=== PATIENT | female | born 1990 | race Caucasian/White ===

== ENCOUNTER 2017-08-26 20:28 | Emergency (ER) | payer MEDICAID ==
[~2017-08-26] VITALS: Ht 160 cm; Wt 61.1 kg
[~2017-08-26 20:28] MED LIST: CALC400T6 PO; IBUP-1222 PO; MAKENA; OXYC-302 PO; PREN1TAB60 PO
[2017-08-26 21:08] LABS: CULTURE INDICATED? YES; MICROSCOPIC INDICATED
[2017-08-26 21:22] LABS: BASOPHILS # (AUTO) 0.01 x10^3/uL (0-0.1); BASOPHILS % (AUTO) 0 % (0-1); EOSINOPHILS # (AUTO) 0.12 x10^3/uL (0-0.4); EOSINOPHILS % (AUTO) 1 % (1-7); LYMPHOCYTES # (AUTO) 2.65 x10^3/uL (1-3.4); LYMPHOCYTES % (AUTO) 25 % (22-44); MD NO; MEAN CORPUSCULAR HEMOGLOBIN 28.7 pg (27.0-34.8); MEAN CORPUSCULAR HGB CONC 33.6 g/dL (32.4-35.8); MEAN CORPUSCULAR VOLUME 85.5 fL (80-100); MEAN PLATELET VOLUME 9.1 fL (7.4-10.4); MONOCYTES # (AUTO) 0.58 x10^3/uL (0.2-0.8); MONOCYTES % (AUTO) 6 % (2-9); NEUTROPHILS # (AUTO) 7.19 x10^3/uL (1.8-6.8); NEUTROPHILS % (AUTO) 68 % (42-75); PLATELET COUNT 328 x10^3/uL (130-400); RED BLOOD COUNT 4.84 x10^6/uL (3.82-5.3); RED CELL DISTRIBUTION WIDTH 12.6 % (9.6-15.2)
[2017-08-26 21:36] LABS: ALANINE AMINOTRANSFERASE 27 U/L (12-78); ALBUMIN 3.7 g/dL (3.4-5.0); ANION GAP 6 mmol/L (5-15); CALCIUM 8.8 mg/dL (8.5-10.1); CHLORIDE 107 mmol/L (98-107); CREATININE 0.63 mg/dL (0.55-1.02)
[2017-08-26 21:39] LABS: CLUE CELLS NONE SEEN (NONE SEEN)
[2017-08-26 21:40] LABS: WET PREP WBCS MANY (FEW)
[2017-08-26 21:52] LABS: ALKALINE PHOSPHATASE 85 U/L (45-117); BILIRUBIN,TOTAL 0.5 mg/dL (0.2-1.0); TOTAL PROTEIN 7.5 g/dL (6.4-8.2)
[2017-08-26 21:56] VITALS: BP 104/72
[2017-08-26] MEDS ORDERED: AZITHROMYCIN 250 MG TABLET ONE (22:14)
[2017-08-26] MEDS ORDERED: LIDOCAINE-MPF 1%, 2ML ONE (22:15)
[2017-08-26] MEDS ORDERED: CEFTRIAXONE 250 MG ONE (22:15)
[2017-08-26] MEDS ORDERED: CEFTRIAXONE 250 MG IM ONE (22:30)
[2017-08-26] MEDS ORDERED: AZITHROMYCIN 500 MG TABLET PO ONE (22:30)
== END 2017-08-26 22:47 | disposition home or self-care (01) ==
LOC: ED 20:47
DX: O20.0 Threatened abortion (principal); O23.11 Infections of bladder in pregnancy, first trimester; Z3A.08 8 weeks gestation of pregnancy
CPT/HCPCS: 36415; 76801; 80053; 81001; 84702; 85025; 86901; 87086; 87210; 87491; 87591; 87808; 96372; 99285; J0696

== ENCOUNTER 2017-11-28 00:13 | Outpatient (CLI) | payer MEDICAID ==
[~2017-11-28] VITALS: Ht 157.5 cm; Wt 61.0 kg
[2017-11-28 01:18] LABS: MICROSCOPIC AUTO
== END 2017-11-28 01:30 | disposition home or self-care (01) ==
LOC: LDOP 00:13
PROVIDERS: ATTEND Obstetrics & Gynecology Gynecology
DX: O26.892 Other specified pregnancy related conditions, second trimester (principal); R10.9 Unspecified abdominal pain; Z3A.22 22 weeks gestation of pregnancy
CPT/HCPCS: 59025; 76815; 81001; 87086; 99211; G0463

== ENCOUNTER 2017-12-01 07:42 | Outpatient (CLI) | payer MEDICAID ==
[~2017-12-01] VITALS: Ht 160 cm; Wt 59.1 kg
[2017-12-01 09:23] LABS: MICROSCOPIC INDICATED
== END 2017-12-01 10:05 | disposition home or self-care (01) ==
LOC: LDOP 07:42
PROVIDERS: ATTEND Obstetrics & Gynecology Gynecology
DX: O26.892 Other specified pregnancy related conditions, second trimester (principal); M54.5 Low back pain; R31.9 Hematuria, unspecified; N13.30 Unspecified hydronephrosis; Z3A.22 22 weeks gestation of pregnancy
CPT/HCPCS: 59025; 76775; 81001; 99211; G0463

== ENCOUNTER 2017-12-20 20:10 | Inpatient (IN) | payer MEDICAID ==
[~2017-12-20] VITALS: Ht 162.6 cm; Wt 62.0 kg
[2017-12-20 20:46] LABS: MICROSCOPIC INDICATED
[2017-12-20] MEDS ORDERED: PLEASE ENTER HEIGHT AND WEIGHT MC SCH (21:00)
[2017-12-20] MEDS ORDERED: CYCLOBENZAPRINE 10 MG TABLET PO ONE (21:00)
[2017-12-20] MEDS ORDERED: HYDROcodone/APAP 5/325 TABLET ONE (21:40)
[2017-12-20] MEDS ORDERED: HYDROcodone/APAP 5/325 TABLET PO ONE (22:00)
[2017-12-20 22:09] LABS: BASOPHILS # (AUTO) 0.03 x10^3/uL (0-0.1); BASOPHILS % (AUTO) 0 % (0-1); EOSINOPHILS # (AUTO) 0.06 x10^3/uL (0-0.4); EOSINOPHILS % (AUTO) 1 % (1-7); LYMPHOCYTES # (AUTO) 1.95 x10^3/uL (1-3.4); LYMPHOCYTES % (AUTO) 15 % (22-44); MD NO; MEAN CORPUSCULAR HEMOGLOBIN 30.3 pg (27.0-34.8); MEAN CORPUSCULAR HGB CONC 34.3 g/dL (32.4-35.8); MEAN CORPUSCULAR VOLUME 88.5 fL (80-100); MEAN PLATELET VOLUME 8.5 fL (7.4-10.4); MONOCYTES # (AUTO) 0.64 x10^3/uL (0.2-0.8); MONOCYTES % (AUTO) 5 % (2-9); NEUTROPHILS # (AUTO) 10.74 x10^3/uL (1.8-6.8); NEUTROPHILS % (AUTO) 80 % (42-75); PLATELET COUNT 314 x10^3/uL (130-400); RED BLOOD COUNT 3.78 x10^6/uL (3.82-5.3)
[2017-12-20 22:33] LABS: ALANINE AMINOTRANSFERASE 17 U/L (12-78); ALBUMIN 2.9 g/dL (3.4-5.0); ANION GAP 5 mmol/L (5-15); CALCIUM 8.7 mg/dL (8.5-10.1); CHLORIDE 107 mmol/L (98-107)
[2017-12-20 22:36] LABS: ALKALINE PHOSPHATASE 111 U/L (45-117); BILIRUBIN,TOTAL 0.5 mg/dL (0.2-1.0); CREATININE 0.58 mg/dL (0.55-1.02); TOTAL PROTEIN 6.8 g/dL (6.4-8.2)
[2017-12-20] MEDS ORDERED: ONDANSETRON 4 MG TABLET ONE (23:54)
[2017-12-21] MEDS ORDERED: ONDANSETRON ODT 4 MG PO ONE
[2017-12-21] MEDS ORDERED: ONDANSETRON 4 MG TABLET PO ONE
[2017-12-21] MEDS ORDERED: MORPHINE SULFATE 4 MG/ML, 1ML IVPush ONE ×2 (01:00→03:00)
[2017-12-21] MEDS ORDERED: MORPHINE SULFATE 4 MG/ML, 1ML ONE ×6 (01:00→11:13)
[2017-12-21] MEDS ORDERED: ONDANSETRON 2MG/ML, 2ML ONE ×3 (01:02→20:11)
[2017-12-21] MEDS: ONDANSETRON 2MG/ML, 2ML IVPush PRN ×3 (01:03→20:13)
[2017-12-21] MEDS ORDERED: D5%-LACTATED RINGERS 1,000 ML IV SCH (04:00)
[2017-12-21] MEDS ORDERED: DIPHENHYDRAMINE 50 MG/ML, 1ML ONE (04:04)
[2017-12-21] MEDS ORDERED: DIPHENHYDRAMINE 50 MG/ML, 1ML IVPush PRN ×2 (04:30)
[2017-12-21] MEDS ORDERED: PROMETHAZINE 25 MG/ML, 1ML ONE (05:22)
[2017-12-21] MEDS ORDERED: morphine SULFATE 10 MG/ML, 1ML IVPush PRN ×2 (05:30)
[2017-12-21] MEDS ORDERED: PROMETHAZINE 25 MG/ML, 1ML IM PRN (05:30)
[2017-12-21] MEDS: MORPHINE SULFATE 4 MG/ML, 1ML IVPush PRN ×3 (06:34→11:15)
[2017-12-21 08:31] VITALS: BP 104/66
[2017-12-21] MEDS: LACTATED RINGERS 1,000 ML IV SCH (08:37)
[2017-12-21] MEDS ORDERED: OXYcodone/APAP 10/325MG TABLET PO PRN (11:30)
[2017-12-21 11:33] LABS: MICROSCOPIC NOT IND
[2017-12-21 11:39] LABS: CULTURE INDICATED? NO
[2017-12-21 11:56] LABS: BASOPHILS # (AUTO) 0.09 x10^3/uL (0-0.1); BASOPHILS % (AUTO) 1 % (0-1); EOSINOPHILS # (AUTO) 0.01 x10^3/uL (0-0.4); EOSINOPHILS % (AUTO) 0 % (1-7); LYMPHOCYTES # (AUTO) 1.71 x10^3/uL (1-3.4); LYMPHOCYTES % (AUTO) 11 % (22-44); MD NO; MEAN CORPUSCULAR HEMOGLOBIN 30.3 pg (27.0-34.8); MEAN CORPUSCULAR HGB CONC 34.4 g/dL (32.4-35.8); MEAN PLATELET VOLUME 8.8 fL (7.4-10.4); MONOCYTES # (AUTO) 0.74 x10^3/uL (0.2-0.8); MONOCYTES % (AUTO) 5 % (2-9); NEUTROPHILS # (AUTO) 13.61 x10^3/uL (1.8-6.8); NEUTROPHILS % (AUTO) 84 % (42-75); PLATELET COUNT 315 x10^3/uL (130-400); RED BLOOD COUNT 3.84 x10^6/uL (3.82-5.3)
[2017-12-21] MEDS ORDERED: HYDROmorphone 2 MG/ML, 1ML ONE ×2 (12:06→14:47)
[2017-12-21] MEDS: HYDROmorphone 2 MG/ML, 1ML IVPush PRN ×3 (12:10→14:49)
[2017-12-21] MEDS ORDERED: HYDROmorphone 2 MG/ML, 1ML IVPush PRN (12:30)
[2017-12-21 15:11] LABS: AMPHETAMINE SCREEN, URINE Negative (Negative); BARBITURATE SCREEN, URINE Negative (Negative); BENZODIAZEPINE SCREEN, URINE Negative (Negative); CANNABINOID SCREEN, URINE Negative (Negative); COCAINE SCREEN, URINE Negative (Negative); METHADONE SCREEN, URINE Negative (Negative); OPIATE SCREEN, URINE Positive (Negative)
[2017-12-21 19:06] LABS: MEAN CORPUSCULAR HGB CONC 34.1 g/dL (32.4-35.8); MEAN CORPUSCULAR VOLUME 87.9 fL (80-100); MEAN PLATELET VOLUME 8.4 fL (7.4-10.4); PLATELET COUNT 315 x10^3/uL (130-400); RED BLOOD COUNT 3.92 x10^6/uL (3.82-5.3)
[2017-12-22] MEDS: LACTATED RINGERS 1,000 ML IV SCH (02:40)
== END 2017-12-22 08:30 | disposition home or self-care (01) | DRG 781 ==
LOC: LDOP 20:10 → UNDOADMIN 12-21 00:59 → LDIP 12-21 00:59
PROVIDERS: ADMIT Obstetrics & Gynecology Gynecology; ATTEND Obstetrics & Gynecology Gynecology
DX: O99.612 Diseases of the digestive system complicating pregnancy, second trimester (principal); N13.30 Unspecified hydronephrosis; O99.89 Other specified diseases and conditions complicating pregnancy, childbirth and the puerperium; Z3A.26 26 weeks gestation of pregnancy; K52.9 Noninfective gastroenteritis and colitis, unspecified; K59.00 Constipation, unspecified; Z80.3 Family history of malignant neoplasm of breast; Z80.41 Family history of malignant neoplasm of ovary; Z80.49 Family history of malignant neoplasm of other genital organs; Z81.8 Family history of other mental and behavioral disorders; Z82.49 Family history of ischemic heart disease and other diseases of the circulatory system; Z81.1 Family history of alcohol abuse and dependence; Z88.2 Allergy status to sulfonamides
CPT/HCPCS: 36415; 87806; J7121; 74181; 76700; 76857; 80053; 80307; 81001; 81003; 85025; 85027; 86592; 86762; 86850; 86900; 87086; 87340; J1170; J2405; Q0162; G0475; J1200; J2270; J7120

== ENCOUNTER 2018-03-14 08:27 | Inpatient (IN) | payer MEDICAID ==
[~2018-03-14] VITALS: Ht 162.6 cm; Wt 65.9 kg
[2018-03-14] MEDS ORDERED: LACTATED RINGERS 1,000 ML IV SCH ×2 (12:14→12:15)
[2018-03-14] MEDS ORDERED: OXYTOCIN 30U/ 0.9% NaCL 500ML 500 ML IV SCH (12:14)
[2018-03-14] MEDS ORDERED: NEWBORN KIT ONE (12:19)
[2018-03-14] MEDS ORDERED: METOCLOPRAMIDE 5 MG/ML, 2ML ONE (12:19)
[2018-03-14] MEDS ORDERED: OXYTOCIN 30U/ 0.9% NaCL 500ML 500 ML ONE (12:19)
[2018-03-14] MEDS ORDERED: SODIUM CITRATE/CITRIC ACID 30 ML UDC ONE (12:20)
[2018-03-14] MEDS ORDERED: METOCLOPRAMIDE 5 MG/ML, 2ML IV ONE (12:30)
[2018-03-14] MEDS ORDERED: LACTATED RINGERS 1,000 ML IVBOLUS ONE (12:30)
[2018-03-14] MEDS ORDERED: SODIUM CITRATE/CITRIC ACID 30 ML UDC PO ONE (12:30)
[2018-03-14 12:44] VITALS: BP 101/58
[2018-03-14 12:54] LABS: BASOPHILS # (AUTO) 0.03 x10^3/uL (0-0.1); BASOPHILS % (AUTO) 0 % (0-1); EOSINOPHILS # (AUTO) 0.13 x10^3/uL (0-0.4); EOSINOPHILS % (AUTO) 1 % (1-7); LYMPHOCYTES # (AUTO) 2.21 x10^3/uL (1-3.4); LYMPHOCYTES % (AUTO) 21 % (22-44); MD NO; MEAN CORPUSCULAR HEMOGLOBIN 28.1 pg (27.0-34.8); MEAN CORPUSCULAR HGB CONC 33.6 g/dL (32.4-35.8); MEAN CORPUSCULAR VOLUME 83.6 fL (80-100); MEAN PLATELET VOLUME 8.6 fL (7.4-10.4); MONOCYTES # (AUTO) 0.63 x10^3/uL (0.2-0.8); MONOCYTES % (AUTO) 6 % (2-9); NEUTROPHILS # (AUTO) 7.63 x10^3/uL (1.8-6.8); NEUTROPHILS % (AUTO) 72 % (42-75); PLATELET COUNT 263 x10^3/uL (130-400); RED CELL DISTRIBUTION WIDTH 12.8 % (9.6-15.2)
[2018-03-14] MEDS ORDERED: ONDANSETRON 2MG/ML, 2ML ONE (14:09)
[2018-03-14] MEDS ORDERED: CEFAZOLIN 1,000 MG ONE (14:09)
[2018-03-14] MEDS ORDERED: EPHEDRINE 50 MG/ML, 1ML ONE (14:09)
[2018-03-14] MEDS ORDERED: OXYTOCIN 10 UNITS/ML, 1ML ONE (14:09)
[2018-03-14] MEDS ORDERED: PHENYLEPHRINE 10 MG/ML ONE (14:09)
[2018-03-14] MEDS ORDERED: DEXAMETHASONE 4 MG/ML, 1ML ONE (14:09)
[2018-03-14] MEDS ORDERED: FENTANYL PF 100 MCG/2ML ONE (14:09)
[2018-03-14] MEDS ORDERED: KETOROLAC 30 MG/1 ML ONE (14:09)
[2018-03-14] MEDS ORDERED: FENTANYL PF 100 MCG/2ML IV PRN (14:30)
[2018-03-14] MEDS ORDERED: PROMETHAZINE 25 MG/ML, 1ML IV PRN (14:30)
[2018-03-14] MEDS ORDERED: MIDAZOLAM 1 MG/ML, 2ML IV PRN (14:30)
[2018-03-14] MEDS ORDERED: LABETALOL 5MG/ML, 20ML IV PRN (14:30)
[2018-03-14] MEDS ORDERED: HYDROcodone/APAP 7.5-325MG/15ML UDC PO PRN (14:30)
[2018-03-14] MEDS ORDERED: ALBUTEROL SULFATE 2.5 MG/3 ML NPPB PRN (14:30)
[2018-03-14] MEDS ORDERED: hydrALAzine 20 MG/ML, 1ML IV PRN (14:30)
[2018-03-14] MEDS ORDERED: HYDROmorphone 1 MG/ML, 1ML IV PRN (14:30)
[2018-03-14] MEDS ORDERED: MEPERIDINE/PF 25MG/0.5ML IVPush PRN (14:30)
[2018-03-14] MEDS ORDERED: ONDANSETRON 2MG/ML, 2ML IVPush PRN (14:30)
[2018-03-14] MEDS ORDERED: OXYcodone 5 MG/5 ML ORAL.SOL UDC PO PRN (14:30)
[2018-03-14] MEDS ORDERED: EPHEDRINE 50 MG/ML, 1ML IVPush PRN (14:30)
[2018-03-14] MEDS: LACTATED RINGERS 1,000 ML IV SCH ×3 (14:40→22:40)
[2018-03-14] MEDS: OXYTOCIN 30U/ 0.9% NaCL 500ML 500 ML IV SCH (14:40)
[2018-03-14] MEDS ORDERED: morphine SULFATE 10 MG/ML, 1ML IVPush PRN (15:00)
[2018-03-14] MEDS ORDERED: OXYcodone IR 5MG TABLET PO PRN (15:00)
[2018-03-14] MEDS ORDERED: SIMETHICONE 80 MG CHEW TAB PO PRN (15:00)
[2018-03-14] MEDS ORDERED: ONDANSETRON 2MG/ML, 2ML IV PRN (15:00)
[2018-03-14] MEDS ORDERED: MISOPROSTOL 200 MCG TABLET PR PRN (15:00)
[2018-03-14] MEDS ORDERED: MEASLES,MUMPS&RUBELLA VACC/PF 0.5 ML SQ-VACC PRN (15:00)
[2018-03-14] MEDS ORDERED: CALCIUM CARBONATE 500 MG TAB.CHEW PO PRN (15:00)
[2018-03-14] MEDS ORDERED: DIPH,PERTUSS(ACELL),TET VAC/PF NC IM-VACC PRN (15:00)
[2018-03-14] MEDS ORDERED: RHOGAM FROM BLOOD BANK 1 NOTE EA IM/IV ONE (15:00)
[2018-03-14] MEDS ORDERED: OXYcodone 5 MG/5 ML ORAL.SOL UDC ONE (16:18)
[2018-03-14 18:20] VITALS: BP 102/63
[2018-03-14 20:00] VITALS: BP 107/66
[2018-03-14] MEDS: DOCUSATE 100 MG CAPSULE PO PRN (20:32)
[2018-03-14] MEDS: KETOROLAC 30 MG/1 ML IV SCH ×2 (20:32→21:00)
[2018-03-15 00:15] VITALS: BP 95/60
[2018-03-15] MEDS: LACTATED RINGERS 1,000 ML IV SCH ×2 (00:40→06:40)
[2018-03-15] MEDS: OXYTOCIN 30U/ 0.9% NaCL 500ML 500 ML IV SCH (00:40)
[2018-03-15] MEDS: OXYcodone/APAP 5/325MG TABLET PO PRN ×3 (01:10→15:09)
[2018-03-15] MEDS: KETOROLAC 30 MG/1 ML IV SCH ×4 (03:07→20:47)
[2018-03-15 04:00] VITALS: BP 100/65
[2018-03-15 04:47] LABS: BASOPHILS # (AUTO) 0.05 x10^3/uL (0-0.1); BASOPHILS % (AUTO) 0 % (0-1); EOSINOPHILS # (AUTO) 0.05 x10^3/uL (0-0.4); EOSINOPHILS % (AUTO) 0 % (1-7); LYMPHOCYTES # (AUTO) 3.06 x10^3/uL (1-3.4); LYMPHOCYTES % (AUTO) 22 % (22-44); MD NO; MEAN CORPUSCULAR HEMOGLOBIN 28.7 pg (27.0-34.8); MEAN CORPUSCULAR HGB CONC 33.7 g/dL (32.4-35.8); MEAN PLATELET VOLUME 8.8 fL (7.4-10.4); MONOCYTES # (AUTO) 1.14 x10^3/uL (0.2-0.8); MONOCYTES % (AUTO) 8 % (2-9); NEUTROPHILS # (AUTO) 9.35 x10^3/uL (1.8-6.8); NEUTROPHILS % (AUTO) 69 % (42-75); PLATELET COUNT 308 x10^3/uL (130-400); RED BLOOD COUNT 3.62 x10^6/uL (3.82-5.3); RED CELL DISTRIBUTION WIDTH 12.8 % (9.6-15.2)
[2018-03-15 07:30] VITALS: BP 101/61
[2018-03-15] MEDS: PRENATAL VIT/IRON/FA 1 EACH TABLET PO SCH (07:48)
[2018-03-15] MEDS: DOCUSATE 100 MG CAPSULE PO PRN ×2 (07:51→20:47)
[2018-03-15 11:59] VITALS: BP 108/67
[2018-03-15 19:58] VITALS: BP 102/68
[2018-03-16] MEDS: OXYcodone/APAP 5/325MG TABLET PO PRN ×2 (00:43→15:09)
[2018-03-16] MEDS: KETOROLAC 30 MG/1 ML IV SCH ×2 (03:07→09:25)
[2018-03-16] MEDS: PRENATAL VIT/IRON/FA 1 EACH TABLET PO SCH (09:00)
[2018-03-16] MEDS: DOCUSATE 100 MG CAPSULE PO PRN (09:25)
[2018-03-16 09:30] VITALS: BP 106/73
[2018-03-16] MEDS: IBUPROFEN 600 MG TABLET PO PRN (15:09)
[2018-03-16 20:15] VITALS: BP 123/79
[2018-03-17] MEDS: IBUPROFEN 600 MG TABLET PO PRN ×3 (00:38→13:49)
[2018-03-17] MEDS: OXYcodone/APAP 5/325MG TABLET PO PRN ×3 (00:38→13:48)
[2018-03-17 07:37] VITALS: BP 111/74
[2018-03-17] MEDS: DOCUSATE 100 MG CAPSULE PO PRN (07:38)
[2018-03-17] MEDS: PRENATAL VIT/IRON/FA 1 EACH TABLET PO SCH (07:38)
[2018-03-17] MEDS ORDERED: OXYC-302 PO (13:56)
[2018-03-17] MEDS ORDERED: IBUP-1222 PO (13:56)
== END 2018-03-17 15:18 | disposition home or self-care (01) | DRG 788 ==
LOC: LDIP 12:04 → 2NW 17:53
PROVIDERS: ADMIT Obstetrics & Gynecology Gynecology; ATTEND Obstetrics & Gynecology Gynecology
PROC: 10D00Z1 Extraction of Products of Conception, Low, Open Approach (ICD-10-PCS; principal; 2018-03-14)
DX: O34.211 Maternal care for low transverse scar from previous cesarean delivery (principal); O99.824 Streptococcus B carrier state complicating childbirth; Z37.0 Single live birth; Z3A.37 37 weeks gestation of pregnancy; Z80.3 Family history of malignant neoplasm of breast; Z80.41 Family history of malignant neoplasm of ovary; Z80.49 Family history of malignant neoplasm of other genital organs; Z81.8 Family history of other mental and behavioral disorders; Z82.49 Family history of ischemic heart disease and other diseases of the circulatory system; Z88.2 Allergy status to sulfonamides
CPT/HCPCS: 36415; 82803; 85025; 86850; 86900; G0378; J0690; J1100; J1885; J2405; J3010; J2370; J2590; J2765; J7120

== ENCOUNTER 2018-10-15 03:15 | Emergency (ER) | payer MEDICAID, OTHER ==
[~2018-10-15] VITALS: Ht 160 cm; Wt 52.5 kg
[2018-10-15 03:19] VITALS: BP 112/74
--- NOTE | 2018-10-15 03:50 | NUR ---
PT PRESENTED WITH C/O LEFT LOWER DENTAL PAIN, MONITORS IN PLACE, CALL LIGHT WITHIN REACH
[2018-10-15] MEDS ORDERED: LIDOCAINE-MPF 1%, 2ML ONE (03:52)
[2018-10-15] MEDS ORDERED: BUPIVACAINE 0.25% ONE (03:53)
[2018-10-15] MEDS ORDERED: CLINDAMYCIN 300 MG CAPSULE ONE (03:53)
--- NOTE | 2018-10-15 03:55 | NUR ---
PT MEDICATED PER MAR
[2018-10-15] MEDS ORDERED: LIDOCAINE 1%, 2ML INFIL ONE (04:00)
[2018-10-15] MEDS ORDERED: BUPIVACAINE/PF 0.5% INFIL ONE (04:00)
[2018-10-15] MEDS ORDERED: CLINDAMYCIN 300 MG CAPSULE PO ONE (04:00)
== END 2018-10-15 04:50 | disposition home or self-care (01) ==
LOC: ED 03:38
DX: K04.7 Periapical abscess without sinus (principal); F17.200 Nicotine dependence, unspecified, uncomplicated
CPT/HCPCS: 41800; 99283

== ENCOUNTER 2019-06-12 13:25 | Emergency (ER) | payer SELFPAY ==
[~2019-06-12] VITALS: Ht 160 cm; Wt 57.3 kg
[2019-06-12 14:04] LABS: BASOPHILS # (AUTO) 0.04 x10^3/uL (0-0.1); BASOPHILS % (AUTO) 1 % (0-1); EOSINOPHILS % (AUTO) 1 % (1-7); LYMPHOCYTES # (AUTO) 2.15 x10^3/uL (1-3.4); LYMPHOCYTES % (AUTO) 25 % (22-44); MD NO; MEAN CORPUSCULAR HEMOGLOBIN 29.4 pg (27.0-34.8); MEAN CORPUSCULAR HGB CONC 33.3 g/dL (32.4-35.8); MEAN CORPUSCULAR VOLUME 88.3 fL (80-100); MEAN PLATELET VOLUME 8.9 fL (7.4-10.4); MONOCYTES # (AUTO) 0.48 x10^3/uL (0.2-0.8); MONOCYTES % (AUTO) 6 % (2-9); NEUTROPHILS % (AUTO) 68 % (42-75); PLATELET COUNT 300 x10^3/uL (130-400); RED BLOOD COUNT 4.44 x10^6/uL (3.82-5.3); RED CELL DISTRIBUTION WIDTH 13.2 % (9.6-15.2)
[2019-06-12 14:11] LABS: MICROSCOPIC AUTO
[2019-06-12 14:12] LABS: CULTURE INDICATED? YES
[2019-06-12 14:13] VITALS: BP 113/63
[2019-06-12 14:15] LABS: ALBUMIN 3.5 g/dL (3.4-5.0); ANION GAP 7 mmol/L (5-15); CALCIUM 8.6 mg/dL (8.5-10.1); CHLORIDE 107 mmol/L (98-107); CREATININE 0.56 mg/dL (0.55-1.02)
--- NOTE | 2019-06-12 14:33 | NUR ---
REPORT TO MICHI. PT RESTING IN BED
--- NOTE | 2019-06-12 15:28 | NUR ---
back from ultrasound
--- NOTE | 2019-06-12 16:37 | NUR ---
Patient given discharge instructions and they have confirmed that they understand the instructions. Patient ambulatory with steady gait.
== END 2019-06-12 16:38 | disposition home or self-care (01) ==
LOC: ED 14:12
DX: R10.31 Right lower quadrant pain (principal); R10.32 Left lower quadrant pain
CPT/HCPCS: 36415; 76801; 80048; 81001; 82040; 84703; 85025; 87086; 99284

== ENCOUNTER 2020-06-29 10:50 | Emergency (ER) | payer SELFPAY ==
[~2020-06-29] VITALS: Ht 162.6 cm; Wt 59.9 kg
[~2020-06-29 10:50] MED LIST changes: -OXYC-302 PO; +OXYC1TAB14 PO
--- NOTE | 2020-06-29 11:38 | NUR ---
SENIOR ENVIRONMENTAL CONSULTANT: PT AMBULATORY TO ROOM FROM LOBBY
--- NOTE | 2020-06-29 11:46 | NUR ---
PT REPORTS THAT SHE IS 14 WEEKS . PT STATES THAT SHE HAS BEEN EXPERIENCING CRAMPING AND PAINFUL URINATION X4 DAYS. PT DENIES ANY VAGINAL BLEEDING Addendum: 06/29/20 at 1148 by NRAPONI PT STATES THAT SHE IS 14 WEEKS . PT C/O CRAMPING X4 HOURS AND PAINFUL URINATION. PT DENIES ANY VAGINAL BLEEDING OR DISCHARGE.
--- NOTE | 2020-06-29 11:50 | NUR ---
PT TO US
[2020-06-29 12:00] LABS: BASOPHILS % (AUTO) 0 % (0-1); EOSINOPHILS % (AUTO) 1 % (1-7); LYMPHOCYTES % (AUTO) 19 % (22-44); MEAN CORPUSCULAR HEMOGLOBIN 29.7 pg (27.0-34.8); MEAN CORPUSCULAR HGB CONC 34.8 g/dL (32.4-35.8); MEAN PLATELET VOLUME 8.7 fL (7.4-10.4); MONOCYTES % (AUTO) 5 % (2-9); NEUTROPHILS % (AUTO) 75 % (42-75); PLATELET COUNT 305 x10^3/uL (130-400); RED BLOOD COUNT 4.55 x10^6/uL (3.82-5.3); RED CELL DISTRIBUTION WIDTH 12.3 % (9.6-15.2)
[2020-06-29 12:02] LABS: MICROSCOPIC INDICATED
[2020-06-29 12:04] LABS: MD NO
[2020-06-29 12:11] LABS: ALBUMIN 3.4 g/dL (3.4-5.0); ANION GAP 6 mmol/L (5-15); CHLORIDE 109 mmol/L (98-107)
[2020-06-29 12:30] LABS: ALANINE AMINOTRANSFERASE 23 U/L (12-78); ALKALINE PHOSPHATASE 86 U/L (45-117); BILIRUBIN,TOTAL 0.4 mg/dL (0.2-1.0); CREATININE 0.57 mg/dL (0.55-1.02)
[2020-06-29 12:53] VITALS: BP 98/62
--- NOTE | 2020-06-29 12:53 | NUR ---
PT RESTING COMFORTABLY IN BED.
--- NOTE | 2020-06-29 13:34 | NUR ---
DISCHARGE INSTRUCTIONS REVIEWED WITH PT. ALL QUESTIONS ANSWERED AT THIS TIME
== END 2020-06-29 13:36 | disposition home or self-care (01) ==
LOC: ED 13:00
DX: O23.12 Infections of bladder in pregnancy, second trimester (principal); R10.2 Pelvic and perineal pain; Z3A.14 14 weeks gestation of pregnancy
CPT/HCPCS: 36415; 76815; 80053; 81001; 84702; 85025; 87086; 99284

== ENCOUNTER 2020-07-16 00:12 | Emergency (ER) | payer SELFPAY ==
[~2020-07-16] VITALS: Ht 157.5 cm; Wt 60.1 kg
--- NOTE | 2020-07-16 00:25 | NUR ---
pt came into ed tonight due to bleeding, pt is 4 months . reports small amounts of blood. denies cramping, nad, appears comfortable, pt placed on spo2/bp monitoring at this time. provided warm blankets for comfort, call light on lap, bed in lowest, rails engaged, SO at bs, [facility] at bs for eval and poc. wctm.
[2020-07-16 00:58] LABS: ANION GAP 7 mmol/L (5-15); BASOPHILS % (AUTO) 0 % (0-1); CALCIUM 8.4 mg/dL (8.5-10.1); CHLORIDE 108 mmol/L (98-107); CREATININE 0.46 mg/dL (0.55-1.02); EOSINOPHILS % (AUTO) 1 % (1-7); LYMPHOCYTES % (AUTO) 27 % (22-44); MEAN CORPUSCULAR HEMOGLOBIN 29.6 pg (27.0-34.8); MEAN CORPUSCULAR HGB CONC 34.8 g/dL (32.4-35.8); MEAN PLATELET VOLUME 9.1 fL (7.4-10.4); MONOCYTES % (AUTO) 6 % (2-9); NEUTROPHILS % (AUTO) 65 % (42-75); PLATELET COUNT 287 x10^3/uL (130-400); RED BLOOD COUNT 4.26 x10^6/uL (3.82-5.3); RED CELL DISTRIBUTION WIDTH 12.2 % (9.6-15.2)
[2020-07-16 01:02] LABS: MD NO
[2020-07-16 01:06] LABS: MICROSCOPIC AUTO
--- NOTE | 2020-07-16 01:06 | NUR ---
Report received from VELIA Martinez. This RN to assume care.
[2020-07-16 02:09] VITALS: BP 95/63
--- NOTE | 2020-07-16 02:46 | NUR ---
Discharge instructions given. All questions and concerns addressed. Patient ambulatory with a steady gait. Belongings with patient.
== END 2020-07-16 02:47 | disposition home or self-care (01) ==
LOC: ED 00:45
DX: O20.0 Threatened abortion (principal); R10.30 Lower abdominal pain, unspecified; Z3A.16 16 weeks gestation of pregnancy; Z87.891 Personal history of nicotine dependence
CPT/HCPCS: 36415; 76815; 80048; 81001; 82040; 84702; 85025; 86901; 99284

== ENCOUNTER 2020-11-29 15:22 | Outpatient (CLI) | payer SELFPAY ==
[~2020-11-29] VITALS: Ht 157.5 cm; Wt 65.9 kg
[2020-11-29 15:30] VITALS: BP 109/63
[2020-11-29 16:23] LABS: MICROSCOPIC INDICATED
[2020-11-29 16:31] LABS: AMPHETAMINE SCREEN, URINE Negative (Negative); BARBITURATE SCREEN, URINE Negative (Negative); BENZODIAZEPINE SCREEN, URINE Negative (Negative); CANNABINOID SCREEN, URINE Negative (Negative); COCAINE SCREEN, URINE Negative (Negative); METHADONE SCREEN, URINE Negative (Negative); OPIATE SCREEN, URINE Negative (Negative)
[2020-11-29] MEDS ORDERED: NITR100C56 PO (17:10)
== END 2020-11-29 17:17 | disposition home or self-care (01) ==
LOC: LDOP 15:22
PROVIDERS: ATTEND Obstetrics & Gynecology
DX: O26.893 Other specified pregnancy related conditions, third trimester (principal); R10.9 Unspecified abdominal pain; Z3A.35 35 weeks gestation of pregnancy
CPT/HCPCS: 59025; 80307; 81001; 87086

== ENCOUNTER 2020-12-07 17:45 | Outpatient (CLI) | payer SELFPAY ==
[~2020-12-07] VITALS: Ht 160 cm; Wt 68.2 kg
[~2020-12-07 17:45] MED LIST changes: +NITR100C56 PO; +OXYC1TAB12 PO; -OXYC1TAB14 PO
[2020-12-07] MEDS ORDERED: PREN-59 PO (17:56)
[2020-12-07 18:37] LABS: MICROSCOPIC INDICATED
[2020-12-07 19:12] LABS: RAPID INFLUENZA A Negative (Negative); RAPID INFLUENZA B Negative (Negative)
== END 2020-12-07 20:15 | disposition home or self-care (01) ==
LOC: LDOP 17:45
PROVIDERS: ATTEND Obstetrics & Gynecology
DX: O98.513 Other viral diseases complicating pregnancy, third trimester (principal); O36.8130 Decreased fetal movements, third trimester, not applicable or unspecified; U07.1 COVID-19; Z3A.36 36 weeks gestation of pregnancy
CPT/HCPCS: 59025; 76819; 81001; 87086; 87400; 87635

== ENCOUNTER 2020-12-12 07:12 | Inpatient (IN) | payer OTHER ==
[~2020-12-12] VITALS: Ht 160 cm; Wt 67.2 kg
[~2020-12-12 07:12] MED LIST changes: -OXYC1TAB12 PO; +OXYC1TAB14 PO; +PREN-59 PO
[2020-12-12] MEDS ORDERED: LACTATED RINGERS 1,000 ML IVBOLUS ONE (10:30)
[2020-12-12] MEDS ORDERED: METOCLOPRAMIDE 5 MG/ML, 2ML IV ONE (10:30)
[2020-12-12] MEDS ORDERED: SODIUM CITRATE/CITRIC ACID 30 ML UDC PO ONE (10:30)
[2020-12-12] MEDS ORDERED: PLEASE ENTER HEIGHT AND WEIGHT MC SCH (10:30)
[2020-12-12 10:32] LABS: BASOPHILS % (AUTO) 1 % (0-1); EOSINOPHILS % (AUTO) 1 % (1-7); LYMPHOCYTES % (AUTO) 36 % (22-44); MEAN CORPUSCULAR HEMOGLOBIN 28.8 pg (27.0-34.8); MEAN CORPUSCULAR HGB CONC 34.9 g/dL (32.4-35.8); MONOCYTES % (AUTO) 6 % (2-9); NEUTROPHILS % (AUTO) 56 % (42-75); PLATELET COUNT 202 x10^3/uL (130-400); RED BLOOD COUNT 4.35 x10^6/uL (3.82-5.3)
[2020-12-12] MEDS ORDERED: NEWBORN KIT ONE (10:52)
[2020-12-12] MEDS ORDERED: OXYTOCIN 30U/ 0.9% NaCL 500ML 500 ML ONE (10:53)
[2020-12-12] MEDS ORDERED: METOCLOPRAMIDE 5 MG/ML, 2ML ONE (10:53)
[2020-12-12] MEDS ORDERED: SODIUM CITRATE/CITRIC ACID 15 ML UDC ONE (10:53)
[2020-12-12 10:54] VITALS: BP 117/72
[2020-12-12] MEDS ORDERED: LACTATED RINGERS 1,000 ML IV SCH (11:30)
[2020-12-12] MEDS ORDERED: morphine SULFATE/PF 0.5 MG/ML, 10ML ONE (12:01)
[2020-12-12] MEDS ORDERED: OXYTOCIN 10 UNITS/ML, 1ML ONE (12:07)
[2020-12-12] MEDS ORDERED: DEXAMETHASONE 4 MG/ML, 1ML ONE (12:07)
[2020-12-12] MEDS ORDERED: ONDANSETRON 2MG/ML, 2ML ONE (12:07)
[2020-12-12] MEDS ORDERED: PHENYLEPHRINE 10 MG/ML ONE (12:07)
[2020-12-12] MEDS ORDERED: SODIUM CHLORIDE FLUSH 0.9%, 20 ML ONE (12:07)
[2020-12-12] MEDS ORDERED: KETOROLAC 30 MG/1 ML ONE ×2 (12:07→21:50)
[2020-12-12] MEDS ORDERED: MIDAZOLAM 1 MG/ML, 2ML ONE (12:36)
[2020-12-12] MEDS ORDERED: FENTANYL PF 100 MCG/2ML ONE (12:44)
[2020-12-12] MEDS: LACTATED RINGERS 1,000 ML IV SCH ×3 (14:00→22:00)
[2020-12-12] MEDS ORDERED: METHYLERGONOVINE 0.2 MG/ML IM PRN (14:00)
[2020-12-12] MEDS ORDERED: IBUPROFEN 800 MG TABLET PO PRN (14:00)
[2020-12-12] MEDS ORDERED: ONDANSETRON 2MG/ML, 2ML IV PRN (14:00)
[2020-12-12] MEDS ORDERED: CARBOPROST TROMETHAMINE 250 MCG/ML, 1ML IM PRN (14:00)
[2020-12-12] MEDS ORDERED: ACETAMINOPHEN 325 MG TABLET PO PRN (14:00)
[2020-12-12] MEDS ORDERED: MISOPROSTOL 200 MCG TABLET PR PRN (14:00)
[2020-12-12] MEDS ORDERED: TRANEXAMIC ACID 100 MG/ML, 10ML IV ONE (14:00)
[2020-12-12] MEDS ORDERED: morphine SULFATE 10 MG/ML, 1ML IM PRN (14:00)
[2020-12-12] MEDS ORDERED: morphine SULFATE 10 MG/ML, 1ML IVPush PRN ×2 (14:00)
[2020-12-12] MEDS ORDERED: OXYcodone IR 5MG TABLET PO PRN (14:00)
[2020-12-12] MEDS: OXYTOCIN 30U/ 0.9% NaCL 500ML 500 ML IV SCH (14:07)
[2020-12-12 16:42] VITALS: BP 103/67
[2020-12-12] MEDS: OXYcodone/APAP 5/325MG TABLET PO PRN (20:30)
[2020-12-12 21:00] VITALS: BP 105/69
[2020-12-12] MEDS: KETOROLAC 30 MG/1 ML IVPush SCH (21:30)
[2020-12-12 21:36] LABS: BASOPHILS % (AUTO) 0 % (0-1); EOSINOPHILS % (AUTO) 0 % (1-7); LYMPHOCYTES % (AUTO) 16 % (22-44); MEAN CORPUSCULAR HEMOGLOBIN 28.8 pg (27.0-34.8); MEAN CORPUSCULAR HGB CONC 34.8 g/dL (32.4-35.8); MEAN PLATELET VOLUME 9.2 fL (7.4-10.4); MONOCYTES % (AUTO) 4 % (2-9); NEUTROPHILS % (AUTO) 81 % (42-75); PLATELET COUNT 215 x10^3/uL (130-400); RED BLOOD COUNT 3.84 x10^6/uL (3.82-5.3); RED CELL DISTRIBUTION WIDTH 12.8 % (9.6-15.2)
[2020-12-13] VITALS: BP 98/57
[2020-12-13] MEDS: OXYTOCIN 30U/ 0.9% NaCL 500ML 500 ML IV SCH
[2020-12-13] MEDS: KETOROLAC 30 MG/1 ML IVPush SCH ×2 (03:51→10:19)
[2020-12-13 04:00] VITALS: BP 105/64
[2020-12-13] MEDS: LACTATED RINGERS 1,000 ML IV SCH ×2 (06:00)
[2020-12-13] MEDS: PRENATAL VIT/IRON/FA 1 EACH TABLET PO SCH (07:56)
[2020-12-13] MEDS: SIMETHICONE 80 MG CHEW TAB PO PRN (07:56)
[2020-12-13] MEDS: DOCUSATE 100 MG CAPSULE PO PRN ×2 (07:56→21:20)
[2020-12-13 08:00] VITALS: BP 114/78
[2020-12-13] MEDS: OXYcodone/APAP 5/325MG TABLET PO PRN ×3 (10:20→21:20)
[2020-12-13 12:30] VITALS: BP 110/74
[2020-12-13] MEDS ORDERED: MEASLES,MUMPS&RUBELLA VACC/PF 0.5 ML SQ-VACC ONE (12:30)
[2020-12-13 20:00] VITALS: BP 115/69
[2020-12-14] MEDS: OXYcodone/APAP 5/325MG TABLET PO PRN ×4 (02:14→15:33)
[2020-12-14] MEDS: SIMETHICONE 80 MG CHEW TAB PO PRN ×2 (02:14→08:26)
[2020-12-14] MEDS ORDERED: IBUPROFEN 800 MG TABLET PO PRN (04:00)
[2020-12-14] MEDS: PRENATAL VIT/IRON/FA 1 EACH TABLET PO SCH (08:26)
[2020-12-14] MEDS: DOCUSATE 100 MG CAPSULE PO PRN (08:26)
[2020-12-14 08:45] VITALS: BP 112/74
[2020-12-14] MEDS ORDERED: IBUPROFEN 800 MG TABLET ONE (10:15)
[2020-12-18] MEDS ORDERED: IBUPROFEN 800 MG TABLET PO PRN (04:00)
== END 2020-12-14 16:07 | disposition home or self-care (01) | DRG 785 ==
LOC: LDIP 09:46 → 2NW 15:20
PROVIDERS: ADMIT Obstetrics & Gynecology; ATTEND Obstetrics & Gynecology
PROC: 10D00Z1 Extraction of Products of Conception, Low, Open Approach (ICD-10-PCS; principal; 2020-12-12)
PROC: 0UB70ZZ Excision of Bilateral Fallopian Tubes, Open Approach (ICD-10-PCS; 2020-12-12)
DX: O34.211 Maternal care for low transverse scar from previous cesarean delivery (principal); Z37.0 Single live birth; Z3A.37 37 weeks gestation of pregnancy; Z88.2 Allergy status to sulfonamides
CPT/HCPCS: 36415; 85025; 86592; 86850; 86900; 88302; G0378; J1100; J1885; J2250; J2274; J2405; J3010; J2370; J2590; J2765; J7120